=== PATIENT | female | born 1960 | race Caucasian/White ===

== ENCOUNTER 2018-02-17 18:19 | Emergency (ER) | payer OTHER ==
[~2018-02-17] VITALS: Ht 165.1 cm; Wt 78.9 kg
[2018-02-17 19:24] LABS: Hematocrit 44.9 % (33.0-51.0); Hemoglobin 14.8 g/dL (11.5-16.0); Mean Corpuscular HGB 30.6 pg (26.0-34.0); Mean Corpuscular Volume 93 fL (80-100); Mean Platelet Volume 10.4 fL (9.1-12.4); Platelet Count 285 K/mm3 (150-400); RDW Standard Deviation 44.6 fL (35.1-46.3); Red Blood Cell Count 4.83 M/mm3 (3.80-5.20); White Blood Cell Count 15.51 K/mm3 (4.00-11.30)
[2018-02-17 19:42] LABS: BAND PERCENT MAN 1 % (0-8); BASOPHILS PERCENT MAN 0 % (0-2); EOSINOPHILS PERCENT MAN 0 % (0-6); LYMPHOCYTES ABSOLUTE MAN 2.17 K/mm3 (0.84-5.20); LYMPHOCYTES PERCENT MAN 14 % (21-46); MONOCYTES ABSOLUTE MAN 0.15 K/mm3 (0.16-1.47); MONOCYTES PERCENT MAN 1 % (4-13); NEUTROPHILS ABSOLUTE MAN 13.18 K/mm3 (1.96-9.15); SEG NEUTROPHILS PERCENT MAN 84 % (41-73); TOTAL CELLS COUNTED 100
[2018-02-17 19:45] LABS: Alanine Aminotransfer (ALT/SGP 34 U/L (12-78); Albumin, Blood 4.1 g/dL (3.4-5.0); Albumin/Globulin Ratio 1.1 (0.8-1.8); Alk Phos 49 U/L (50-136); Anion Gap 9 mmol/L (6-16); Aspartate Aminotrans (AST/SGOT 17 U/L (12-37); Bilirubin, Total 0.4 mg/dL (0.1-1.0); Blood Urea Nitrogen 19 mg/dL (8-24); Bun/Creatinine Ratio 23.9 (12.0-20.0); CO2, Blood 24 mmol/L (21-32); Calcium, Blood 9.2 mg/dL (8.5-10.1); Chloride, Blood 108 mmol/L (98-108); Globulin, Blood 3.7 g/dL (2.2-4.0); Glomerular Filtration Rate >60 (60-); Glucose, Blood 183 mg/dL (70-99); Sodium, Blood 141 mmol/L (136-145); Total Protein, Blood 7.8 g/dL (6.4-8.2)
[2018-02-17 20:04] LABS: Source, Urine Clean Catch
[2018-02-17 20:12] LABS: Bilirubin, Urine Neg (Neg); Blood, Urine 2+ (Neg); Glucose Qualitative, Urine Neg (Neg); Ketones, Urine 3+ (Neg); Leukocyte Esterase, Urine Neg (Neg); Nitrite, Urine Neg (Neg); Protein, Urine 2+ (Neg); Urobilinogen, Urine NORM (Normal)
[2018-02-17 20:13] LABS: Appearance, Urine Cloudy (Clear); Color, Urine Yellow (P-Yellow)
[2018-02-17 20:15] LABS: Amorphous Light (0-Heavy); Red Blood Cells, Urine 0-2 /hpf (0-2); Squamous Epithelial Cells Rare /hpf (Few); White Blood Cells, Urine Not Seen /hpf (0-5)
[2018-02-17 20:16] LABS: Bacteria Few /hpf
[2018-02-17] MEDS ORDERED: Percocet 5-3251 EACH PO (20:45)
== END 2018-02-17 21:24 | disposition home or self-care (01) ==
LOC: ER 18:19
PROVIDERS: Physician Assistant
DX: N13.2 Hydronephrosis with renal and ureteral calculous obstruction (principal); Z88.5 Allergy status to narcotic agent
CPT/HCPCS: 36415; 74176; 80053; 81001; 83690; 85025; 96361; 96374; 96375; 99284-25; J1170; J2405; J3010; J7030